=== PATIENT | female | born 1985 | race African-American/Black ===

== ENCOUNTER 2022-01-01 22:53 | Emergency (ER) | payer OTHER, SELFPAY ==
[2022-01-02] MEDS ORDERED: Acetaminophen 500 MG TAB ONE (00:27)
[2022-01-02] MEDS ORDERED: Ketorolac Tromethamine 30 MG/ML VIAL ONE (00:28)
== END 2022-01-02 00:50 | disposition home or self-care (01) ==
LOC: CSHERS 22:53
DX: M54.42 Lumbago with sciatica, left side (principal); R51.9 Headache, unspecified
CPT/HCPCS: 96372; 99283; J1885